=== PATIENT | female | born 1975 | race American Indian/Alaskan Native ===

== ENCOUNTER 2018-05-20 11:00 | Outpatient (CLI) | payer OTHER | END 2018-05-20 11:01 | disposition home or self-care (01) | LOC: SLR 11:00 | PROVIDERS: ATTEND Otolaryngology | DX: G47.33 Obstructive sleep apnea (adult) (pediatric) (principal); R40.0 Somnolence; R06.83 Snoring; I10 Essential (primary) hypertension | CPT/HCPCS: G0399 ==

== ENCOUNTER 2020-05-10 11:00 | Outpatient (CLI) | payer BC | END 2020-05-11 11:00 | disposition home or self-care (01) | LOC: SLR 11:00 | PROVIDERS: ATTEND Otolaryngology | DX: G47.30 Sleep apnea, unspecified (principal); I10 Essential (primary) hypertension | CPT/HCPCS: G0399 ==

== ENCOUNTER 2020-05-25 13:57 | Outpatient (CLI) | payer BC | END 2020-05-25 13:58 | disposition home or self-care (01) | LOC: SLR 13:57 | PROVIDERS: ATTEND Otolaryngology | DX: G47.33 Obstructive sleep apnea (adult) (pediatric) (principal) | CPT/HCPCS: 95811 ==